=== PATIENT | male | born 1985 | race African-American/Black ===

== ENCOUNTER 2018-06-05 22:04 | Emergency (ER) | payer MEDICAID ==
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
== END 2018-06-05 23:00 | disposition home or self-care (01) ==
LOC: ER 22:04
DX: S16.1XXA Strain of muscle, fascia and tendon at neck level, initial encounter (principal); V43.52XA Car driver injured in collision with other type car in traffic accident, initial encounter; Y93.89 Activity, other specified; Y92.410 Unspecified street and highway as the place of occurrence of the external cause; Y99.8 Other external cause status
CPT/HCPCS: Z7502